=== PATIENT | female | born 1965 | race African-American/Black ===

== ENCOUNTER 2018-12-15 16:53 | Emergency (ER) | payer OTHER, BC | END 2018-12-15 17:46 | disposition home or self-care (01) | LOC: JERFT 16:53 ==

== ENCOUNTER 2019-02-01 19:27 | Emergency (ER) | payer BC, OTHER ==
--- NOTE | 2019-02-01 19:58 | PDOC ---
Rapid Medical Evaluation Chief Complaint: Pain Time Seen by Provider: 02/01/19 19:53 Medical Evaluation: Allergies Allergy/AdvReac Type Severity Reaction Status Date / Time No Known Allergies Allergy Verified 12/15/18 17:19 02/01/19 19:55 I have performed a brief in-person evaluation of this patient. The patient presents with a chief complaint of: right foot pain while getting pedicure Pertinent physical exam findings: mild swelling to dorsum, pt tearful I have ordered the following: Xray right foot , Tylenol 650mg po given The patient will proceed to the ED for further evaluation. 02/01/19 19:57 02/01/19 20:00 Discharge Disposition - Diagnosis Pain - Referrals Referrals: Ger Olson MD, MD [Primary Care Provider] - - Patient Instructions - Post Discharge Activity
[2019-02-01] MEDS ORDERED: ACETAMINOPHEN 325 MG TABLET (FP) PO ONE (19:59)
[2019-02-01 20:07] VITALS: BP 147/77; PULSE 74; TEMP 98.2; BMI 31.7
--- NOTE | 2019-02-01 20:10 | PDOC ---
History of Present Illness - General Chief Complaint: Pain Stated Complaint: PAIN Time Seen by Provider: 02/01/19 19:53 History Source: Patient - History of Present Illness Initial Comments: 02/01/19 20:41 Chief complaint: Foot pain Patient is a 53-year-old female with not a significant medical problems who states she had a pedicure and her foot was held in the same position for about 45 minutes, when she tried to move it she had pain and swelling. Patient denies any specific injury or wound. Patient states she has no pain at rest but pain when she tries to stand on her foot. GENERAL/CONSTITUTIONAL: No fever, weakness. dizziness HEAD, EYES, EARS, NOSE AND THROAT: No change in vision. No ear pain or discharge. No sore throat. CARDIOVASCULAR: No chest pain RESPIRATORY: No shortness of breath or cough GASTROINTESTINAL: No pain, nausea, vomiting, diarrhea or constipation GENITOURINARY: No dysuria MUSCULOSKELETAL: No neck or back pain, + right foot SKIN: No rash NEUROLOGIC: No headache, vertigo, loss of consciousness, or loss of sensation. GENERAL: The patient is awake, alert, and fully oriented, in no acute distress. HEAD: Normal with no signs of trauma. EYES: Pupils equal, round and reactive to light, sclera anicteric, conjunctiva clear. ENT: pharynx: no erythema, no exudate, uvula midline NECK: supple CHEST: clear, nontender, rr ABD: soft, nontender BACK: no tenderness or signs of injury EXTREMITIES: Right lower extremity with some swelling on the medial, proximal dorsum, no signs of infection, no wounds, neurovascular intact. Rest of extremities, normal range of motion, no edema. NEUROLOGICAL: Normal speech, patient ambulatory with limp SKIN: Warm, Dry Past History - Past Medical History Allergies/Adverse Reactions: Allergies Allergy/AdvReac Type Severity Reaction Status Date / Time No Known Allergies Allergy Verified 02/01/19 20:02 Home Medications: Ambulatory Orders NK [No Known Home Medication] 12/15/18 Asthma: Yes COPD: No - Suicide/Smoking/Psychosocial Hx Smoking History: Never smoked Have you smoked in the past 12 months: No Information on smoking cessation initiated: No Hx Alcohol Use: No Drug/Substance Use Hx: No *Physical Exam - Vital Signs Last Vital Signs Temp Pulse Resp BP Pulse Ox 98.2 F 74 19 147/77 100 02/01/19 19:58 02/01/19 19:58 02/01/19 19:58 02/01/19 19:58 02/01/19 19:58 Procedures - Splinting Splint Location: Right: Ankle Post-Proc Neuro Vasc Exam: normal Alen Bandage: 4" *DC/Admit/Observation/Transfer Diagnosis at time of Disposition: Foot pain, right - Discharge Dispostion Disposition: HOME Condition at time of disposition: Stable Decision to Admit order: No - Referrals Referrals: Ger Olson MD, [Primary Care Provider] - Jimenez Steve MD [Staff Physician] - - Patient Instructions Additional Instructions: Elevate, wear alen. Use crutches You can apply ice for 20 minutes every 2 hours for the next 2 days Motrin 600 mg every 6 hours for pain. Call the orthopedist if not improving by Tuesday - Post Discharge Activity Forms/Work/School Notes: Back to Work
[2019-02-01] MEDS ORDERED: IBUPROFEN 600 MG TABLET (FP) PO ONE ×2 (20:30)
== END 2019-02-01 20:41 | disposition home or self-care (01) ==
LOC: JER 19:27
DX: M79.671 Pain in right foot (principal)
CPT/HCPCS: 73630-TC-RT-FY; 99281-25